=== PATIENT | male | born 1965 | race Caucasian/White ===

== ENCOUNTER 2016-10-21 19:55 | Emergency (ER) | payer BC ==
[~2016-10-21] VITALS: Ht 172.7 cm; Wt 91.2 kg
[2016-10-21 20:23] LABS: HEMATOCRIT 45.5 % (38.0-50.0); MCH 30.4 PG (29.0-34.0); MCHC 34.7 G/DL (30.0-36.0); MCV 87.5 FL (86-99); PLATELET COUNT 342 K/uL (156-360); RBC DIS.WIDTH-CV 11.5 % (11.8-14.6); RBC DIS.WIDTH-SD 37.2 % (39-53); WHITE BLOOD COUNT 8.3 K/uL (4.1-10.2)
[2016-10-21 20:34] LABS: CHLORIDE 103 mEq/L (99-109); POTASSIUM 4.2 mEq/L (3.7-5.4); SODIUM 142 mEq/L (136-147)
[2016-10-21 20:36] LABS: GLUCOSE 75 mg/dL (70-99)
[2016-10-21 20:37] LABS: ANION GAP 12 MEQ/L (2-14)
[2016-10-21 20:38] LABS: TOTAL BILIRUBIN 0.8 mg/dL (0.0-1.0)
[2016-10-21 20:39] LABS: ALKALINE PHOSPHATASE 80 IU/L (3-129)
[2016-10-21 20:41] LABS: UREA NITROGEN (BUN) 11 mg/dL (9-23)
[2016-10-21 20:43] LABS: LIPASE 15 U/L (1.0-51.0)
[2016-10-21 20:54] LABS: GFR ESTIMATE (CALCULATED) > 59 mL/min/
[2016-10-21] MEDS ORDERED: BENTYL20 MG PO (23:10)
[2016-10-21] MEDS ORDERED: ZOFRAN ODT4 MG PO (23:10)
[2016-10-21] MEDS ORDERED: FLAGYL500 MG PO (23:10)
[2016-10-21] MEDS ORDERED: CIPRO500 MG PO (23:10)
[2016-10-21 23:14] LABS: ADD MIUA? NO; BILIRUBIN NEGATIVE; BLOOD NEGATIVE; COLOR YELLOW ((YELLOW)); GLUCOSE (STRIP) NEGATIVE; KETONES NEGATIVE; LEUKOCYTES NEGATIVE; NITRITE NEGATIVE; PROTEIN (STRIP) NEGATIVE; SPECIFIC GRAVITY 1.044 (1.000-1.030); UROBILINOGEN 0.2 MG/DL (0.2-1.0)
[2016-10-21 23:34] VITALS: BP 133/91
== END 2016-10-21 23:34 | disposition home or self-care (01) ==
LOC: EME 19:55 → RME 19:55
PROVIDERS: Nurse Practitioner Family
DX: K57.92 Diverticulitis of intestine, part unspecified, without perforation or abscess without bleeding (principal); Z87.891 Personal history of nicotine dependence
CPT/HCPCS: 74177; 80053; 81003; 83690; 85027; 99281; 99285; J7040